=== PATIENT | female | born 1945 | race Caucasian/White ===

== ENCOUNTER 2017-01-20 17:59 | Inpatient (IN) | payer MEDICARE, MEDICAID ==
[~2017-01-20 17:59] MED LIST: ADVAIR HFA 230-28 GM IH; ALBUTEROL SULF8.5 GM IH; ALBUTEROL0.83 MG/ML INH; ASPIR 8181 MG PO; ASPIRIN EC81 M1 PO; ATARAX50 MG PO; AUGMENTIN 875-11 TAB PO; AXERT; BABY ASPIRIN81 MG PO; BREO ELLIPTA 11 EAC1 IH; BRINTELLIX5 MG PO; CALCIUM CA PO; CALCIUM WITH VI1 TAB; CALCIUM500 M2 PO; CITRACAL + D31 EACH PO; CLONAZEPAM0.5 M1 PO; CLONAZEPAM0.5 M2 PO; CLONAZEPAM0.5 MG PO; CLONAZEPAM1 MG; CULTURELLE1 CAP PO; CYMBALTA60 MG; DEEP SEA45 ML NS; DOCUSATE CALCI240 MG; DULERA 200 MCG/13 GM IH; EFFEXOR100 MG PO; FUROSEMIDE40 MG PO; GLYCOPYRROLATE1 M1 PO; GLYCOPYRROLATE1 MG PO; HYDROXYCHLOROQ200 M1 PO; IMITREX100 M1 PO; IMITREX100 MG PO; IMITREX6 MG/0. SQ; INCRUSE ELLI62.5 MCG IH; IRON325 M1 PO; K-DUR10 ME1 PO; K-DUR10 MEQ PO; KEFLEX500 M2 PO; KEFLEX500 MG PO; LASIX20 MG PO; LASIX40 M1 PO; LASIX40 MG; LASIX40 MG PO; LEVAQUIN750 M1 PO; LEVAQUIN750 MG PO; LEXAPRO10 M2 PO; LEXAPRO10 MG PO; LISINOPRIL10 MG PO; MIRALAX17 G2 PO; MIRALAX17 GM PO; MORPHINE SULFAT45 MG PO; MORPHINE SULFAT60 M1 PO; MORPHINE SULFAT60 M2 PO; MS CONTIN30 MG PO; MS CONTIN60 MG; MS CONTIN60 MG PO; MSIR30 MG PO; MUCINEX600 M1 PO; NEURONTIN300 M1 PO; NEXIUM20 MG PO; NORCO 10/325 TA1 TAB; NORCO 5-325 TA1 EACH PO; NORCO 5/325 TAB1 TAB PO; NORCO 5/3251 TA1 NG; NORCO 5/3251 TA1 PO; NORCO 5/3251 TA2 PO; NORCO 5/3251 TAB PO; NORVASC5 M1 PO; NORVASC5 M2 PO; NORVASC5 MG PO; PLAQUENIL200 MG; POTASSIUM CHLO10 MEQ PO; POTASSIUM CHLO15 MEQ; PROAIR HFA8.5 GM INH; REQUIP1 M1 PO; REQUIP1 MG; REQUIP1 MG PO; ROCALTROL0.25 MCG PO; ROPINIROLE HCL1 MG PO; ROZEREM8 MG; SPIRIVA18 MCG IH; SPIRONOLACTONE25 MG PO; SPIRONOLACTONE50 MG; TOPAMAX25 MG PO; TOPAMAX50 M3 PO; TOPROL XL25 MG PO; TOPROL XL50 MG PO; TUMS500 M1 PO; VENLAFAXINE HC100 MG PO; VITAMIN D250000 UNI1 PO; VITAMIN D250000 UNIT PO; VITAMIN D50000 UNIT PO; ZANAFLEX4 MG; ZYRTEC10 MG; ZYRTEC10 MG PO
[2017-01-20 19:02] LABS: BASO % 0.1 % (0-2); EOS % 0.1 % (0-7); HGB-HEMOGLOBIN 12.4 gm/dl (12.0-15.5); IMMATURE GRANULOCYTES ABSOLUTE 0.46 tho/cmm (0-0.03); IMMATURE GRANULOCYTES PERCENT 3.2 % (0-0.3); LYMPH % 9.3 % (20-45); LYMPH ABSOLUTE COUNT 1.4 tho/cmm (0.8-4.5); MCH (MEAN CORPUSCULAR HGB) 31.6 pg (28.0-32.0); MCV (MEAN CELL VOLUME) 101.8 fl (82.0-96.0); MEAN PLATELET VOLUME 12.6 cmc (9.4-12.4); MONO % 24.8 % (0-12); MONOCYTE ABSOLUTE COUNT 3.6 tho/cmm (0.0-1.2); NEUTROPHIL ABSOLUTE COUNT 9.1 tho/cmm (1.6-8.0); NEUTROPHIL-AUTOMATED 9.1 tho/cmm (1.6-8.0); NEUTROPHILS % 62.5 % (40-80); PLATELET COUNT 69 tho/cmm (150-450); RED BLOOD COUNT 3.93 mil/cmm (4.00-5.20); RED CELL DISTRIBUTION WIDTH 13.1 % (12.4-16.4); WHITE BLOOD COUNT 14.6 tho/cmm (4.0-10.0)
[2017-01-20 19:21] LABS: ALB/GLOB RATIO 0.7 (0.8-2.0); ALBUMIN 3.9 g/dl (3.5-5.0); ALKALINE PHOSPHATASE 88 U/L (33-138); ALT/SGPT 24 U/L (12-78); BILIRUBIN,TOTAL 0.5 mg/dl (0-1.5); BLOOD UREA NITROGEN 9 mg/dl (6-24); CALCIUM 8.9 mg/dl (8.5-10.5); CARBON DIOXIDE-VENOUS 30 mmol/L (22-32); CHLORIDE 103 mmol/l (96-110); CREATININE 0.82 mg/dl (0.50-1.10); GLUCOSE 109 mg/dL (70-110); SODIUM 142 mmol/L (135-145); eGFR VALUE FOR BLACK 84 mL/Min
[2017-01-20 19:25] LABS: ANION GAP 13 mmol/L (0-20); AST/SGOT 25 U/L (10-40); POTASSIUM 3.8 mmol/L (3.7-5.1)
[2017-01-20 19:35] LABS: URINE BILIRUBIN NEGATIVE (NEG); URINE BLOOD SMALL (NEG); URINE GLUCOSE (UA) NEGATIVE (NEG); URINE KETONE NEGATIVE (NEG); URINE LEUKOCYTE ESTERASE POSITIVE (NEG); URINE NITRITE NEGATIVE (NEG); URINE PROTEIN SMALL (NEG)
[2017-01-20 19:36] LABS: URINE APPEARANCE CLEAR; URINE COLOR PALE YELLOW
[2017-01-20 19:40] LABS: URINE BACTERIA 3+
[2017-01-20 19:41] LABS: URINE EPITHELIAL CELLS 0-1 /[HPF] (0-10)
[2017-01-20] MEDS ORDERED: IRON325 M3 PO (21:11)
[2017-01-20] MEDS ORDERED: NORVASC5 M2 PO (21:11)
[2017-01-20] MEDS ORDERED: LASIX40 M1 PO (21:11)
[2017-01-20] MEDS ORDERED: ROBINUL1 M1 PO (21:12)
[2017-01-20] MEDS ORDERED: MS CONTIN15 M1 PO (21:12)
[2017-01-20] MEDS ORDERED: BRINTELLIX20 M1 PO (21:12)
[2017-01-20] MEDS ORDERED: MS CONTIN30 M1 PO (21:12)
[2017-01-20] MEDS ORDERED: PLAQUENIL200 M1 PO (21:13)
[2017-01-20] MEDS ORDERED: TOPAMAX50 M3 PO (21:13)
[2017-01-20] MEDS ORDERED: TOPROL XL50 M1 PO (21:13)
[2017-01-20] MEDS ORDERED: VITAMIN D32000 UNI2 PO (21:14)
[2017-01-20] MEDS ORDERED: KLONOPIN0.5 M1 PO (21:14)
[2017-01-20] MEDS ORDERED: REQUIP1 M1 PO (21:14)
[2017-01-20] MEDS ORDERED: POTASSIUM CHLO10 ME2 PO (21:15)
[2017-01-20] MEDS ORDERED: HYDROCODON-ACE1 EA16 PO (21:16)
[2017-01-20] MEDS ORDERED: NEURONTIN300 M1 PO (21:16)
[2017-01-20] MEDS ORDERED: IPRAT-ALBUT 0.5-3 ML INH (21:16)
[2017-01-20] MEDS ORDERED: CALCIUM + VITA1 EAC4 PO (21:16)
[2017-01-20] MEDS ORDERED: IMITREX100 M2 PO (21:17)
[2017-01-20] MEDS ORDERED: INCRUSE ELLI62.5 MCG INH (21:17)
[2017-01-20] MEDS ORDERED: BREO ELLIPTA 11 EAC1 INH (21:17)
[2017-01-20] MEDS ORDERED: IMITREX6 MG/0.52 SC (21:18)
[2017-01-21 02:11] LABS: HCT-HEMATOCRIT 34.4 % (34.0-49.0); HGB-HEMOGLOBIN 10.7 gm/dl (12.0-15.5); MCH (MEAN CORPUSCULAR HGB) 31.5 pg (28.0-32.0); MCHC MEAN CORPUSCULAR HGB CONC 31.1 % (32.0-36.0); MCV (MEAN CELL VOLUME) 101.2 fl (82.0-96.0); MEAN PLATELET VOLUME 12.2 cmc (9.4-12.4); NEUTROPHIL-AUTOMATED 7.6 tho/cmm (1.6-8.0); PLATELET COUNT 55 tho/cmm (150-450); RED CELL DISTRIBUTION WIDTH 13.2 % (12.4-16.4); WHITE BLOOD COUNT 11.3 tho/cmm (4.0-10.0)
[2017-01-21 02:17] LABS: ANION GAP 13 mmol/L (0-20); BLOOD UREA NITROGEN 8 mg/dl (6-24); CALCIUM 7.5 mg/dl (8.5-10.5); CARBON DIOXIDE-VENOUS 26 mmol/L (22-32); CHLORIDE 106 mmol/l (96-110); CREATININE 0.81 mg/dl (0.50-1.10); POTASSIUM 3.4 mmol/L (3.7-5.1); SODIUM 142 mmol/L (135-145); eGFR VALUE FOR BLACK 85 mL/Min
[2017-01-21 02:18] LABS: GLUCOSE 210 mg/dL (70-110)
[2017-01-21 02:47] LABS: PROCALCITONIN 0.12 ng/ml (0.05-0.09)
[2017-01-21 08:12] LABS: MAGNESIUM 1.8 mg/dl (1.8-2.6)
[2017-01-21] MEDS ORDERED: AUGMENTIN 875-1 EAC2 PO (13:14)
[2017-01-23 14:50] LABS: BAND % 8 % (0-20); BAND ABSOLUTE COUNT 0.9 tho/cmm (0-2.0)
== END 2017-01-21 15:20 | DRG 872 ==
LOC: EDMED 17:59 → EMR2 21:58 → 5WE 23:10
PROVIDERS: Emergency Medicine; ADMIT Internal Medicine
DX: A41.9 Sepsis, unspecified organism (principal); D69.6 Thrombocytopenia, unspecified; N39.0 Urinary tract infection, site not specified; J44.9 Chronic obstructive pulmonary disease, unspecified; Z99.81 Dependence on supplemental oxygen; M32.9 Systemic lupus erythematosus, unspecified; E66.9 Obesity, unspecified; Z79.891 Long term (current) use of opiate analgesic; G47.33 Obstructive sleep apnea (adult) (pediatric); M79.7 Fibromyalgia; G25.81 Restless legs syndrome; M19.90 Unspecified osteoarthritis, unspecified site; I10 Essential (primary) hypertension; G62.9 Polyneuropathy, unspecified; Z87.891 Personal history of nicotine dependence; Z88.7 Allergy status to serum and vaccine; Z88.8 Allergy status to other drugs, medicaments and biological substances; G89.4 Chronic pain syndrome; R51 Headache
CPT/HCPCS: G8978-GP-CJ; G8979-GP-CJ; G8980-GP-CJ; J0456; J0696; J0780; J1170; J1200; J1650; J1956; J2405; J3030; J7030; J7050

== ENCOUNTER 2017-01-30 11:25 | Inpatient (IN) | payer MEDICARE, MEDICAID ==
[~2017-01-30 11:25] MED LIST changes: +AUGMENTIN 875-1 EAC2 PO; +BREO ELLIPTA 11 EAC1 INH; +BRINTELLIX20 M1 PO; +CALCIUM + VITA1 EAC4 PO; +HYDROCODON-ACE1 EA16 PO; +IMITREX100 M2 PO; +IMITREX6 MG/0.52 SC; +INCRUSE ELLI62.5 MCG INH; +IPRAT-ALBUT 0.5-3 ML INH; +IRON325 M3 PO; +KLONOPIN0.5 M1 PO; +MS CONTIN15 M1 PO; +MS CONTIN30 M1 PO; +PLAQUENIL200 M1 PO; +POTASSIUM CHLO10 ME2 PO; +ROBINUL1 M1 PO; +TOPROL XL50 M1 PO; +VITAMIN D32000 UNI2 PO
[2017-01-30] MEDS ORDERED: ABILIFY2 M1 PO (11:37)
[2017-01-30] MEDS ORDERED: MACROBID 100 M100 M1 PO (11:38)
[2017-01-30 12:05] LABS: ABG CO2 ARTERIAL 22 mmol/L (21-27); ARTERIAL BLD GAS O2 SATURATION 97 % (95-98); ARTERIAL BLOOD GAS PCO2 38 mmHg (32-45); ARTERIAL PO2 80 mmHg (70-100); BICARBONATE 21 mmol/L (21-28); BLOOD GAS BASE EXCESS -3 mM/L (-/+3); PH 7.37 Units (7.35-7.45)
[2017-01-30 12:14] LABS: BASO % 0.2 % (0-2); EOS % 0.2 % (0-7); HCT-HEMATOCRIT 39.9 % (34.0-49.0); HGB-HEMOGLOBIN 12.5 gm/dl (12.0-15.5); IMMATURE GRANULOCYTES ABSOLUTE 0.42 tho/cmm (0-0.03); IMMATURE GRANULOCYTES PERCENT 3.2 % (0-0.3); LYMPH % 6.8 % (20-45); LYMPH ABSOLUTE COUNT 0.9 tho/cmm (0.8-4.5); MCH (MEAN CORPUSCULAR HGB) 31.4 pg (28.0-32.0); MCHC MEAN CORPUSCULAR HGB CONC 31.3 % (32.0-36.0); MCV (MEAN CELL VOLUME) 100.3 fl (82.0-96.0); MEAN PLATELET VOLUME 12.1 cmc (9.4-12.4); MONO % 23.6 % (0-12); MONOCYTE ABSOLUTE COUNT 3.1 tho/cmm (0.0-1.2); NEUTROPHIL ABSOLUTE COUNT 8.7 tho/cmm (1.6-8.0); NEUTROPHIL-AUTOMATED 8.7 tho/cmm (1.6-8.0); PLATELET COUNT 62 tho/cmm (150-450); RED BLOOD COUNT 3.98 mil/cmm (4.00-5.20); RED CELL DISTRIBUTION WIDTH 13.1 % (12.4-16.4); WHITE BLOOD COUNT 13.1 tho/cmm (4.0-10.0)
[2017-01-30] MEDS ORDERED: SPORANOX100 M1 PO (12:38)
[2017-01-30] MEDS ORDERED: NYSTOP60 GM EXT (12:38)
[2017-01-30] MEDS ORDERED: NYSTATIN15 G1 TP (12:39)
[2017-01-30 12:40] LABS: ALB/GLOB RATIO 0.8 (0.8-2.0); ALBUMIN 3.9 g/dl (3.5-5.0); ALKALINE PHOSPHATASE 82 U/L (33-138); ALT/SGPT 27 U/L (12-78); ANION GAP 15 mmol/L (0-20); AST/SGOT 28 U/L (10-40); BILIRUBIN,TOTAL 0.7 mg/dl (0-1.5); BLOOD UREA NITROGEN 4 mg/dl (6-24); C-REACTIVE PROTEIN 1.1 mg/dl (0-0.9); CALCIUM 8.8 mg/dl (8.5-10.5); CARBON DIOXIDE-VENOUS 23 mmol/L (22-32); CHLORIDE 107 mmol/l (96-110); CREATININE 0.69 mg/dl (0.50-1.10); GLUCOSE 106 mg/dL (70-110); POTASSIUM 3.5 mmol/L (3.7-5.1); SODIUM 141 mmol/L (135-145); eGFR VALUE FOR BLACK >90 mL/Min
[2017-01-30] MEDS ORDERED: VITAMIN D250000 UNI1 PO (12:40)
[2017-01-30 12:54] LABS: URINE APPEARANCE CLEAR; URINE BILIRUBIN NEGATIVE (NEG); URINE BLOOD SMALL (NEG); URINE COLOR YELLOW; URINE GLUCOSE (UA) NEGATIVE (NEG); URINE KETONE NEGATIVE (NEG); URINE LEUKOCYTE ESTERASE NEGATIVE (NEG); URINE NITRITE NEGATIVE (NEG); URINE PROTEIN NEGATIVE (NEG)
[2017-01-30 13:00] LABS: PROCALCITONIN 0.05 ng/ml (0.05-0.09)
[2017-01-30] MEDS ORDERED: KLONOPIN0.5 M1 PO (13:03)
[2017-01-30 13:04] LABS: URINE EPITHELIAL CELLS RARE /[HPF] (0-10)
[2017-01-31 05:57] LABS: BASO % 0.1 % (0-2); HCT-HEMATOCRIT 33.3 % (34.0-49.0); HGB-HEMOGLOBIN 10.6 gm/dl (12.0-15.5); IMMATURE GRANULOCYTES ABSOLUTE 0.37 tho/cmm (0-0.03); IMMATURE GRANULOCYTES PERCENT 3.9 % (0-0.3); LYMPH % 18.7 % (20-45); LYMPH ABSOLUTE COUNT 1.8 tho/cmm (0.8-4.5); MCH (MEAN CORPUSCULAR HGB) 31.5 pg (28.0-32.0); MCHC MEAN CORPUSCULAR HGB CONC 31.8 % (32.0-36.0); MCV (MEAN CELL VOLUME) 99.1 fl (82.0-96.0); MEAN PLATELET VOLUME 12.3 cmc (9.4-12.4); MONO % 30.4 % (0-12); MONOCYTE ABSOLUTE COUNT 2.9 tho/cmm (0.0-1.2); NEUTROPHIL ABSOLUTE COUNT 4.4 tho/cmm (1.6-8.0); NEUTROPHIL-AUTOMATED 4.4 tho/cmm (1.6-8.0); NEUTROPHILS % 46.9 % (40-80); PLATELET COUNT 56 tho/cmm (150-450); RED BLOOD COUNT 3.36 mil/cmm (4.00-5.20); RED CELL DISTRIBUTION WIDTH 13.4 % (12.4-16.4); WHITE BLOOD COUNT 9.4 tho/cmm (4.0-10.0)
[2017-01-31 06:12] LABS: ANION GAP 12 mmol/L (0-20); BLOOD UREA NITROGEN 5 mg/dl (6-24); CALCIUM 8.2 mg/dl (8.5-10.5); CARBON DIOXIDE-VENOUS 25 mmol/L (22-32); CHLORIDE 109 mmol/l (96-110); GLUCOSE 112 mg/dL (70-110); SODIUM 143 mmol/L (135-145)
[2017-01-31 06:20] LABS: POTASSIUM 2.9 mmol/L (3.7-5.1)
[2017-01-31 06:32] LABS: CREATININE 0.65 mg/dl (0.50-1.10); eGFR VALUE FOR BLACK >90 mL/Min
[2017-01-31 12:20] LABS: POTASSIUM 3.2 mmol/L (3.7-5.1)
--- NOTE | 2017-01-31 13:22 | NUR ---
VIRTUAL CARE NOTE: PT RESTING ON BED STATES DOING OK, STILL HAVING SOME LOOSE STOOLS BUT IT IS BETTER AFTER IMMODIUM GIVEN. DENIES ISSUES WITH BREATHING, PT IS CHRONICLY ON 3L O2 AT HOME CONTINUOSLY. PLAN OF CARE DISCUSSES, PT DENIES NEEDS OR QUESTIONS AT THIS TIME.
--- NOTE | 2017-02-01 00:47 | NUR ---
VIRTUAL CARE NOTE: ASSESSMENT DEFERRED. PT. SLEEPING.
[2017-02-01 05:53] LABS: BASO % 0.2 % (0-2); EOS % 0.2 % (0-7); HCT-HEMATOCRIT 31.9 % (34.0-49.0); HGB-HEMOGLOBIN 9.9 gm/dl (12.0-15.5); IMMATURE GRANULOCYTES ABSOLUTE 0.27 tho/cmm (0-0.03); IMMATURE GRANULOCYTES PERCENT 4.4 % (0-0.3); LYMPH % 20.7 % (20-45); LYMPH ABSOLUTE COUNT 1.3 tho/cmm (0.8-4.5); MCH (MEAN CORPUSCULAR HGB) 31.3 pg (28.0-32.0); MCV (MEAN CELL VOLUME) 100.9 fl (82.0-96.0); MONO % 34.2 % (0-12); MONOCYTE ABSOLUTE COUNT 2.1 tho/cmm (0.0-1.2); NEUTROPHIL ABSOLUTE COUNT 2.5 tho/cmm (1.6-8.0); NEUTROPHIL-AUTOMATED 2.5 tho/cmm (1.6-8.0); NEUTROPHILS % 40.3 % (40-80); PLATELET COUNT 53 tho/cmm (150-450); RED BLOOD COUNT 3.16 mil/cmm (4.00-5.20); RED CELL DISTRIBUTION WIDTH 13.7 % (12.4-16.4); WHITE BLOOD COUNT 6.2 tho/cmm (4.0-10.0)
[2017-02-01 06:06] LABS: ANION GAP 13 mmol/L (0-20); BLOOD UREA NITROGEN 4 mg/dl (6-24); CALCIUM 8.1 mg/dl (8.5-10.5); CARBON DIOXIDE-VENOUS 26 mmol/L (22-32); CHLORIDE 110 mmol/l (96-110); GLUCOSE 91 mg/dL (70-110); POTASSIUM 3.6 mmol/L (3.7-5.1); SODIUM 145 mmol/L (135-145); eGFR VALUE FOR BLACK 87 mL/Min
--- NOTE | 2017-02-01 21:10 | NUR ---
VIRTUAL CARE NOTE: PT. IN BED STATES HAS BEEN HAVING SOME LOOSE STOOLS. ALSO STATES PAIN IS 5/10. EXPLAINED HISTORY OF HER LOOSE STOOLS. EDUCATION THAT WE WOULD HAVE TO ASK PHYSICIANS IN THE AM REGARDING A GI CONSULT REQUEST. UNABLE TO VIEW 'S NOTES DUE TO TODAY'S NOTES WERE NOT SCANNED IN THE SYSTEM. DENIES FURTHER NEEDS AT THIS TIME, INSTRUCTED TO CALL FOR FUTURE NEEDS. STATES VERBAL AGREEMENT.
[2017-02-02 05:18] LABS: BASO % 0.3 % (0-2); EOS % 0.3 % (0-7); HCT-HEMATOCRIT 32.8 % (34.0-49.0); LYMPH % 23.1 % (20-45); LYMPH ABSOLUTE COUNT 1.4 tho/cmm (0.8-4.5); MCH (MEAN CORPUSCULAR HGB) 31.5 pg (28.0-32.0); MCHC MEAN CORPUSCULAR HGB CONC 30.5 % (32.0-36.0); MCV (MEAN CELL VOLUME) 103.5 fl (82.0-96.0); MONO % 30.9 % (0-12); MONOCYTE ABSOLUTE COUNT 1.9 tho/cmm (0.0-1.2); NEUTROPHIL ABSOLUTE COUNT 2.8 tho/cmm (1.6-8.0); NEUTROPHIL-AUTOMATED 2.8 tho/cmm (1.6-8.0); NEUTROPHILS % 45.4 % (40-80); PLATELET COUNT 51 tho/cmm (150-450); RED BLOOD COUNT 3.17 mil/cmm (4.00-5.20); RED CELL DISTRIBUTION WIDTH 13.3 % (12.4-16.4); WHITE BLOOD COUNT 6.2 tho/cmm (4.0-10.0)
[2017-02-02 05:35] LABS: ANION GAP 12 mmol/L (0-20); BLOOD UREA NITROGEN 5 mg/dl (6-24); CALCIUM 8.4 mg/dl (8.5-10.5); CARBON DIOXIDE-VENOUS 26 mmol/L (22-32); CHLORIDE 110 mmol/l (96-110); CREATININE 0.71 mg/dl (0.50-1.10); GLUCOSE 118 mg/dL (70-110); SODIUM 145 mmol/L (135-145); eGFR VALUE FOR BLACK >90 mL/Min
[2017-02-02 05:40] LABS: POTASSIUM 3.4 mmol/L (3.7-5.1)
[2017-02-02] MEDS ORDERED: IMODIUM A-D2 M3 PO (16:37)
[2017-02-02] MEDS ORDERED: ALIGN PROBIOTIC PO (16:37)
== END 2017-02-02 17:40 | DRG 392 ==
LOC: EDMED 11:25 → EMR2 16:08 → 5WD 19:20
PROVIDERS: Emergency Medicine; Family Medicine; ADMIT Internal Medicine
DX: K52.9 Noninfective gastroenteritis and colitis, unspecified (principal); J96.11 Chronic respiratory failure with hypoxia; D69.6 Thrombocytopenia, unspecified; K52.1 Toxic gastroenteritis and colitis; M32.9 Systemic lupus erythematosus, unspecified; R91.1 Solitary pulmonary nodule; J44.9 Chronic obstructive pulmonary disease, unspecified; G89.29 Other chronic pain; R91.8 Other nonspecific abnormal finding of lung field; G47.33 Obstructive sleep apnea (adult) (pediatric); M79.7 Fibromyalgia; G25.81 Restless legs syndrome; I10 Essential (primary) hypertension; F32.9 Major depressive disorder, single episode, unspecified; G62.9 Polyneuropathy, unspecified; G43.909 Migraine, unspecified, not intractable, without status migrainosus; E87.6 Hypokalemia; K76.0 Fatty (change of) liver, not elsewhere classified; E73.9 Lactose intolerance, unspecified; D53.9 Nutritional anemia, unspecified; E66.9 Obesity, unspecified; Z68.38 Body mass index [BMI] 38.0-38.9, adult; Z99.81 Dependence on supplemental oxygen; Z87.891 Personal history of nicotine dependence; Z88.1 Allergy status to other antibiotic agents; Z88.7 Allergy status to serum and vaccine; Z88.8 Allergy status to other drugs, medicaments and biological substances; Z79.891 Long term (current) use of opiate analgesic; Z79.899 Other long term (current) drug therapy; T36.0X5A Adverse effect of penicillins, initial encounter
CPT/HCPCS: J2270; J2405; J2543; J3030; J3370; J7030; P9612; Q9967